=== PATIENT | male | born 1985 | race Caucasian/White ===

== ENCOUNTER 2018-02-19 23:22 | Emergency (ER) | payer OTHER ==
[~2018-02-19] VITALS: Ht 182.9 cm; Wt 117.9 kg
[~2018-02-19 23:22] MED LIST: ALBUTEROL0.09 MG/A1 INH; ALEVE220 MG PO; AUGMENTIN 875 M1 TAB PO; AUGMENTIN 875-1 EACH PO; FIORICET 325 MG1 TAB PO; FLEXERIL10 MG PO; HYDROCODONE/ACE1 TA1 PO; LOMOTIL 0.025 M1 TAB PO; MOTRIN800 MG PO; NAPROSYN 500 M500 MG PO; NAPROSYN500 M1 PO; NASONEX0.05 MG/Ac INH; NORFLEX100 MG PO; PERCOCET 325 MG1 TA2 PO; PRED FORTE 1 ML1 ML OS; PREDNISONE50 MG PO; PROVENTIL0.09 MG/A1 PO; SYMBICORT 160/41 PUF INH; TRAMADOL HCL50 M1 PO; VICODIN 5-3001 EACH PO; ZOFRAN ODT4 MG PO
[2018-02-19 23:29] VITALS: BP 120/82
--- NOTE | 2018-02-19 23:33 | ED INFLUENZA/URI COMPLAINT ---
History of Present Illness General Chief Complaint: Fever Stated Complaint: FEVER SINCE TUE. Source: patient, old records Exam Limitations: no limitations Vital Signs & Intake/Output Vital Signs & Intake/Output Vital Signs Date Time Temp Pulse Resp B/P B/P Pulse O2 O2 Flow FiO2 Mean Ox Delivery Rate 02/19 2329 97.6 105 20 120/82 97 Room Air ED Intake and Output 02/20 0000 02/19 1200 Intake Total Output Total Balance Patient 260 lb Weight Weight Reported by Patient Measurement Method Allergies Uncoded Allergies: FLEA CHEMICALS (Severe, EYES SWELL SHUT 04/16/15) SEASONAL (UNKNOWN 06/22/16) Reconcile Medications Albuterol Sulfate (Proventil Hfa) 0.09 MG/Actuation INOCENCIO 2 PUFF PO 4 TIMES/DAY PRN WHEEZING Azithromycin (Zithromax) 250 MG TABLET 1 DP PO AD URI 2 the first day followed by 1 for days 2-5 Codeine Phosphate/Guaifenesi (Guaifen-Codeine 100-10 MG/5 Ml) 10 MG-100 MG/5 ML LIQUID 10 ML PO Q6HR PRN COUGH Tramadol HCl 50 MG TABLET 1 TAB PO Q4-6HR PRN pain Triage Note: PT TO ER C/C FEVERS, CHILLS, COUGH AND FATIGUE X 3 DAYS. PER PT TOOK TYLENOL AT 2000, TEMP IN TRIAGE 97.6. T-MAX 104.0 PRIOR TO TYLENOL. Triage Nurses Notes Reviewed? yes Onset: Abrupt Duration: day(s): (3), constant Timing: recent history Severity: mild Severity Numbers: 4 No Modifying Factors: none Associated Symptoms: cough, muscle aches, nasal congestion, sore throat HPI: 32-year-old male history of asthma presents to the ER for evaluation complaining of a three-day history of fever as high as 104 chills generalized bodyaches nonproductive cough sore throat and rhinorrhea congestion. No abdominal pain nausea vomiting diarrhea. He last took Tylenol at 8:00 prior to arrival with improvement in his fever. The patient uses E cigarettes. He scheduled a follow -up with his primary care physician tomorrow. No chest pain shortness of breath (Ahmet Sheridan) Past History Travel History Traveled to [place] past 21 day No Medical History Any Pertinent Medical History? see below for history Neurological: migraine EENT: EXODERMAL DYSPLAGIA TUBES IN EARS DEVIATED SEPTUM Cardiovascular: NONE Respiratory: asthma, bronchitis, pneumonia Gastrointestinal: GERD Hepatic: NONE Renal: NONE Musculoskeletal: ECZEMA Psychiatric: NONE Endocrine: NONE Blood Disorders: NONE Cancer(s): NONE COLLECTIONS ANALYST/Reproductive: NONE Tetanus Vaccine: 07/24/12 Surgical History Surgical History: TUBES IN EARS Psychosocial History What is your primary language [place] Tobacco Use: Never used Family History Hx Contributory? No (Ahmet Sheridan) Review of Systems Review of Systems Constitutional: Reports: see HPI. Comments Review of systems: See HPI, All other systems negative. Constitutional, fever HEENT: sore throat congestion, no ear pain Cardiovascular: No chest pain , no palpitation Skin: no rashes, no change in skin Respiratory: No dyspnea cough no sputum GI: No nausea no vomiting, no diarrhea, Muscle skeletal: No joint pain, no back pain, no neck pain, Neurologic: , no headache Immunology: No lymphadenopathy (Ahmet Sheridan) Physical Exam Physical Exam General Appearance: well developed/nourished, no apparent distress, alert Ears, Nose, Throat: normal ENT inspection, moist mucous membrane Comments: Well-developed well-nourished patient in no apparent distress. Head/Face: Atraumatic, no maxillary/frontal sinus tenderness, no facial swelling Eyes: PERRL, EOMI, no conjunctival injection. Ear:External auditory canal and Tympanic membranes clear, no erythema, no FB. Nose: atraumatic.Normal inspection Throat: Moist mucous membranes.Pharynx normal. No pharyngeal erythema/exudate seen. No stridor/drooling or assymetry. No swelling or edema. Neck: Supple, no lymphadenopathy, FROM Back: FROM Cardiovascular: Regular rate and rhythms no murmur Respiratory: No respiratory distress. Patient speaking in full complete sentences. Breath sounds clear to auscultation bilaterally: NO W/R/R Extremities: full range of motion Neuro: awake, alert, and oriented to person, place and time. There were no obvious focal neurologic abnormalities. Skin: Warm & dry;No appreciable rash on exposed skin Psych: Mood affect normal, normal memory normal judgment. Core Measures Sepsis Present: No Sepsis Focused Exam Completed? No (Ahmet Sheridan) Progress Differential Diagnosis: influenza, pneumonia, pharyngitis, sinusitis, BRONCHITIS Plan of Care: Orders Procedure Date/time Status RAPID VIRAL INFLUENZA A 02/20 2324 Complete Microbiology 02/19 2333 NASOPHARYN: Influenza Virus A & B Rapid Smear - COMP Patient medicated with DuoNeb On repeat evaluation patient reports to feeling improved. I discussed with the patient at length all of their results. I had an extensive conversation regarding need for close follow up with their primary care physician this week as well as return precautions. I answered all of their questions, they feel comfortable with the plan and follow-up care. I discussed with the patient/family the medications that they will receive. I gave them signs and symptoms that could indicate an adverse reaction. I have advised them to limit their activities until they can see how they respond to the medication. Initial ED EKG: none (Ahmet Sheridan) Departure Departure Time of Disposition: 0000 Disposition: HOME OR SELF CARE Condition: Stable Clinical Impression Primary Impression: URI (upper respiratory infection) Referrals: Cathy Dougherty MD (PCP/Family) Additional Instructions: guaifensin with codeine for cough- use caution as this may make you drowsy. zpak as directed. drink plenty of fluids. interchange tylenol or motrin for fevers. follow up with your pmd as scheduled tomorrow. return with any concerns Departure Forms: Customer Survey General Discharge Information Prescriptions: Current Visit Scripts Codeine Phosphate/Guaifenesi (Guaifen-Codeine 100-10 MG/5 Ml) 10 ML PO Q6HR PRN COUGH #150 ML Azithromycin (Zithromax) 1 DP PO AD #6 TAB 2 the first day followed by 1 for days 2-5 (Ahmet Sheridan) PA/CUSTOMER RELATIONS SPECIALIST Co-Sign Statement Statement: ED Attending supervision documentation- [] I saw and evaluated the patient. I have also reviewed all the pertinent lab results and diagnostic results. I agree with the findings and the plan of care as documented in the PA's/CUSTOMER RELATIONS SPECIALIST's documentation. [x] I have reviewed the ED Record and agree with the PA's/CUSTOMER RELATIONS SPECIALIST's documentation. [] Additions or exceptions (if any) to the PAs/CUSTOMER RELATIONS SPECIALIST's note and plan are summarized below: [] (Liz POWERS,Alonzo Pham)
[2018-02-19] MEDS ORDERED: GUAIFEN-CODEIN118 M1 PO (23:52)
[2018-02-19] MEDS ORDERED: ZITHROMAX250 M2 PO (23:52)
== END 2018-02-20 00:05 ==
LOC: ERH 23:22
DX: J06.9 Acute upper respiratory infection, unspecified (principal); F17.290 Nicotine dependence, other tobacco product, uncomplicated
CPT/HCPCS: 1263; 87804; 87804-59